=== PATIENT | male | born 1995 | race Caucasian/White ===

== ENCOUNTER 2025-02-02 22:36 | Inpatient (IN) | payer OTHER ==
[~2025-02-02] VITALS: Ht 162.6 cm; Wt 69.9 kg
[2025-02-03 01:36] LABS: BASOPHILS % 0.1 % (0.0-2.0); EOSINOPHILS % 1.5 % (0.0-5.0); HEMOGLOBIN. 14.2 g/dL (14.0-18.0); LYMPHOCYTES % 22.3 % (20.0-50.0); MEAN CORPUSCULAR HEMOGLOBIN 33.6 pg (28.0-32.0); MEAN CORPUSCULAR HGB CONC 35.4 g/dL (31.0-37.0); MEAN CORPUSCULAR VOLUME 94.8 fL (80.0-94.0); MEAN PLATELET VOLUME 9.2 fl (7.4-10.4); MONOCYTES % 9.8 % (2.0-8.0); NEUTROPHILS % 66.3 % (40.0-76.0); PLATELET 230 x1000/uL (130-400); RED BLOOD CELL COUNT 4.22 mill/uL (4.7-6.1); WHITE BLOOD COUNT 9.9 x1000/uL (4.5-11.0)
[2025-02-03 01:47] LABS: PROTHROMBIN TIME 10.6 sec (9.6-11.0)
[2025-02-03 01:48] LABS: CHLORIDE 105 mEq/L (98-107); POTASSIUM 4.2 mEq/L (3.5-5.1); SODIUM 140 mEq/L (136-145)
[2025-02-03 01:49] LABS: CARBON DIOXIDE 28 mEq/L (21-32)
[2025-02-03 01:50] LABS: CALCIUM 9.3 mg/dL (8.7-10.4)
[2025-02-03 01:54] LABS: CREATININE 0.8 mg/dL (0.6-1.3)
[2025-02-03 01:55] LABS: GLUCOSE 112 mg/dL (70-105); UREA NITROGEN BLOOD 10 mg/dL (9-23)
[2025-02-03 01:56] LABS: ALANINE AMINOTRANSFERASE 46 IU/L (10-49); ASPARTATE AMINOTRANSFERASE 38 IU/L (<34)
[2025-02-03 01:57] LABS: ALBUMIN 4.6 g/dL (3.2-4.8); BILIRUBIN DIRECT 0.3 mg/dL (<=3.0); BILIRUBIN TOTAL 1.1 mg/dL (0.1-1.0); PROTEIN TOTAL 7.5 g/dL (6.0-8.3)
[2025-02-03 04:52] LABS: CLARITY URINE CLEAR (CLEAR); COLOR URINE YELLOW (YELLOW); GLUCOSE URINE NEGATIVE (NEGATIVE); KETONES URINE TRACE (NEGATIVE); LEUKOCYTE ESTERASE URINE NEGATIVE (NEGATIVE); NITRITE URINE NEGATIVE (NEGATIVE); OCCULT BLOOD URINE NEGATIVE (NEGATIVE); PROTEIN URINE NEGATIVE (NEGATIVE); SPECIFIC GRAVITY URINE 1.029 (1.005-1.030)
[2025-02-03 08:00] VITALS: BP 95/51; PULSE 71; RESP 18; TEMP 36.4; O2SAT 100
[2025-02-03 11:00] VITALS: BP 95/51; PULSE 71; RESP 18; TEMP 36.6
[2025-02-03 11:54] VITALS: BP 100/54; PULSE 68; RESP 18; TEMP 36.6; O2SAT 100
[2025-02-03] MEDS ORDERED: ONDANSETRON HCL 4MG/2ML INJ IV PRN (12:15)
[2025-02-03] MEDS ORDERED: IPRATROPIUM/ALBUTEROL 0.5-3(2.5)MG/3ML NEB HHN PRN (12:15)
[2025-02-03] MEDS ORDERED: CLONIDINE 0.1MG TABLET PO PRN (12:15)
[2025-02-03] MEDS ORDERED: KETOROLAC 30MG/ML VIAL IV PRN (12:15)
[2025-02-03] MEDS ORDERED: ACETAMINOPHEN 325MG TABLET PO PRN (12:15)
[2025-02-03] MEDS ORDERED: DOCUSATE SODIUM 100MG CAPSULE PO PRN (12:15)
[2025-02-03] MEDS: ACETAMINOPHEN 325MG TABLET PO PRN (15:50)
[2025-02-03 16:00] VITALS: BP 108/54; PULSE 77; RESP 19; TEMP 36.6; O2SAT 99
[2025-02-03 18:55] LABS: URIC ACID 4.9 mg/dL (3.7-9.2)
[2025-02-03 18:57] LABS: ETHANOL BLOOD < 10 mg/dL (<10)
[2025-02-03 18:58] LABS: CREATINE KINASE 62 IU/L (46-171)
[2025-02-03 20:00] VITALS: BP 93/46; PULSE 63; RESP 19; TEMP 36.6; O2SAT 99
[2025-02-04] MEDS: SODIUM CHLORIDE 0.45% 1,000 ML IV SCH (01:26)
[2025-02-04] MEDS: PIPERACILLIN/TAZO 3.375G/50ML 50 ML IV SCH (02:51)
[2025-02-04 06:26] LABS: CARBON DIOXIDE 27 mEq/L (21-32); CHLORIDE 104 mEq/L (98-107); POTASSIUM 4.1 mEq/L (3.5-5.1); SODIUM 139 mEq/L (136-145)
[2025-02-04 06:27] LABS: CALCIUM 9.3 mg/dL (8.7-10.4)
[2025-02-04 06:31] LABS: BASOPHILS % 0.3 % (0.0-2.0); HEMATOCRIT. 39.2 % (42.0-52.0); LYMPHOCYTES % 26.6 % (20.0-50.0); MEAN CORPUSCULAR HEMOGLOBIN 33.6 pg (28.0-32.0); MEAN CORPUSCULAR HGB CONC 35.7 g/dL (31.0-37.0); MEAN PLATELET VOLUME 9.4 fl (7.4-10.4); MONOCYTES % 7.5 % (2.0-8.0); NEUTROPHILS % 63.6 % (40.0-76.0); PLATELET 244 x1000/uL (130-400); RED BLOOD CELL COUNT 4.17 mill/uL (4.7-6.1); RED CELL DISTRIBUTION WIDTH 12.7 % (11.6-14.6); WHITE BLOOD COUNT 8.1 x1000/uL (4.5-11.0)
[2025-02-04 06:32] LABS: CREATININE 0.7 mg/dL (0.6-1.3); GLUCOSE 107 mg/dL (70-105); TRIGLYCERIDE 125 mg/dL (0-150); UREA NITROGEN BLOOD 12 mg/dL (9-23)
[2025-02-04 06:33] LABS: ALANINE AMINOTRANSFERASE 46 IU/L (10-49); LDL CHOLESTEROL 97 mg/dL (5-100)
[2025-02-04 06:34] LABS: ALBUMIN 4.4 g/dL (3.2-4.8); ASPARTATE AMINOTRANSFERASE 33 IU/L (<34); BILIRUBIN DIRECT 0.4 mg/dL (<=3.0); BILIRUBIN TOTAL 1.3 mg/dL (0.1-1.0); CHOLESTEROL 143 mg/dL (<200); HDL CHOLESTEROL 24 mg/dL (>55); PROTEIN TOTAL 7.1 g/dL (6.0-8.3)
[2025-02-04 06:44] LABS: PROTHROMBIN TIME 10.8 sec (9.6-11.0)
[2025-02-04 08:00] VITALS: BP 87/43; PULSE 70; RESP 18; TEMP 36.5; O2SAT 99
[2025-02-04 09:56] LABS: *AMPHETAMINES SCREEN URINE NEGATIVE (NEGATIVE); *BARBITURATES SCREEN URINE NEGATIVE (NEGATIVE); *BENZODIAZEPINES SCREEN URINE NEGATIVE (NEGATIVE); *COCAINE SCREEN URINE NEGATIVE (NEGATIVE); CANNABINOID URINE SCREEN NEGATIVE (NEGATIVE); ECSTASY MDMA SCREEN URINE NEGATIVE (NEGATIVE); METHADONE URINE SCREEN NEGATIVE (NEGATIVE); OPIATES URINE SCREEN NEGATIVE (NEGATIVE); PHENCYCLIDINE URINE SCREEN NEGATIVE (NEGATIVE)
[2025-02-04 12:00] VITALS: BP 92/51; PULSE 71; RESP 17; TEMP 35.8; O2SAT 100
[2025-02-04 16:00] VITALS: BP 96/50; PULSE 74; RESP 18; TEMP 37.6; O2SAT 98
[2025-02-04 20:00] VITALS: BP 105/52; PULSE 65; RESP 19; TEMP 36.7; O2SAT 98
[2025-02-05] VITALS: BP 87/41; PULSE 56; RESP 18; TEMP 35.7; O2SAT 99
[2025-02-05 08:00] VITALS: BP 98/57; PULSE 61; RESP 18; TEMP 36.5; O2SAT 100
[2025-02-05] MEDS ORDERED: AMOX1TAB16 MT (08:04)
[2025-02-05 11:48] VITALS: BP 98/57; PULSE 61; TEMP 97.7; O2SAT 100
== END 2025-02-05 13:05 | disposition home or self-care (01) | DRG 720 ==
LOC: ER 22:36 → 6EST 02-03 02:08 → EDBEDREQTM 02-03 04:53 → EDBEDREQ 02-03 04:53 → ENRESERV 02-03 05:21
PROVIDERS: ADMIT Internal Medicine; ATTEND Internal Medicine
DX: A41.9 Sepsis, unspecified organism (principal); L03.115 Cellulitis of right lower limb
CPT/HCPCS: 36415; 73562; 76881; 80048; 80061; 80076; 80305; 80320; 81003; 82550; 83036; 83605; 83735; 83880; 84100; 84145; 84550; 85025; 85379; 85651; 99285; J2543; G0480